=== PATIENT | female | born 1955 | race Caucasian/White ===

== ENCOUNTER → 2018-06-13 12:17 | Outpatient (CLI) | payer OTHER, SELFPAY ==
[2018-06-13 13:11] LABS: Hematocrit 36.1 % (36-46); Mean Corpuscular HGB Conc 33.3 % (30-36); Mean Corpuscular Hemoglobin 31.3 PG (26-34); Platelet Count 281 X10^3/uL (150-400); Red Blood Cell Count 3.84 X10^6/uL (4.0-5.2); Red Cell Distribution Width 13.2 % (11.6-14.8); White Blood Cell Count 11.5 X10^3/uL (4.5-11.0)
[2018-06-13 13:12] LABS: Add Manual Diff / Slide Review YES
[2018-06-13 13:18] LABS: Lactate Dehydrogenase 384 U/L (313-618)
[2018-06-13 13:31] LABS: Neutrophils Absolute Manual 3680 /uL (3000-5900); Total Cells Counted 100
[2018-06-13 13:32] LABS: Smudge Cells 1+
[2018-06-13 13:33] LABS: RBC Morphology Normal Morphology
== END ==
PROVIDERS: Family Provider Family Medicine; PCP Family Medicine; Visit Provider Nurse Practitioner Gerontology
DX: C91.10 Chronic lymphocytic leukemia of B-cell type not having achieved remission (principal)
CPT/HCPCS: 36415; 83615; 85025

== ENCOUNTER → 2018-06-19 08:54 | Oncology outpatient (ONC) | payer OTHER, SELFPAY ==
[2018-06-19 10:57] VITALS: BP 122/74; PULSE 67; RESP 15; TEMP 36.7; O2SAT 100
--- NOTE | 2018-06-19 11:18 | ONC.APRN.PN ---
Assessment and Plan (1) Chronic lymphocytic leukemia Current visit: Yes Status: Acute 06/19/18 11:20 The patient is a 62 year old Female who is being seen in the clinic 06/19/2018 for chronic lymphocytic leukemia. On exam today she has no clinical signs or symptoms to suggest progression of CLL. Specifically no night sweats, weight loss, early satiety, fatigue. No recent illnesses or infections. CBC, CMP unremarkable. White count mildly elevated at 11.5. Hemoglobin 12.0 hematocrit 36.1 platelets [id number]. Normal morphology. LDH 384. I will ask the patient to return in 6 months time for provider visit CBC, CMP, LDH. PN -Subjective Interval history: The patient is a 62 year old Female who is being seen in the clinic 06/19/2018 for chronic lymphocytic leukemia. Patient was initially sent by her primary care provider Dr. Marvin due to elevated white count of 10,900. Differential demonstrated 27 segs, 2 bands, 33 lymphs, 33% atypical lymphocytes. Hemoglobin was normal at 12.5. MCV 93. Platelets [id number]. In review of CBC 2014 showed elevated white count of 10,200 again with alteration in neutrophils/lymphocyte ratio. Patient does not report any overt symptoms of CLL. She does complain of some intermittent fatigue. She has chronic migraines. She denies night sweats, fever. She states she does continue to have postmenopausal hot flashes however these remain unchanged. No nausea, abdominal pain, discomfort. No early satiety. She does not have a history of infections or acute illness. No shortness of breath. In discussion with the pt She seems to have a very good understanding of this diagnosis. Past Medical History The patient's past medical history is significant for: Mitral valve prolapse Postmenopausal hot flashes Anemia Fibromyalgia Chronic migraine headaches Anxiety Allergies Current Medications - Patient Self-Reported Symptoms SR Neuro issues: Headache SR Endocrine issues: Hot flashes Results - Imaging Additional studies: Procedures Colonoscopy (03/27/13) Ligation of hemorrhoids (03/27/13) Home Medications and Allergies Home Medications Medication Instructions Recorded Confirmed Type desonide [DesOwen] 1 betsy TOPICAL BIDP PRN #15 gm 04/11/17 05/04/18 Rx estradiol 0.5 mg PO QDAY #90 tab 04/11/17 05/04/18 Rx naratriptan 1 tab OR SEE INSTRUCTIONS PRN #12 11/29/17 05/04/18 Rx tab medroxyprogesterone 2.5 mg tablet 1.25 mg PO DAILY #45 tab 04/25/18 05/04/18 Rx zonisamide 100 mg capsule 100 mg PO DAILY #30 cap 05/04/18 Rx zonisamide 25 mg capsule 25 mg PO DAILY #24 cap 05/04/18 Rx Allergies Allergy/AdvReac Type Severity Reaction Status Date / Time TETNUS Allergy Unknown Uncoded 05/04/18 10:24 Exam Vital signs: Last Vital Signs Temp 98.0 F 06/19/18 10:57 Pulse 67 06/19/18 10:57 Resp 15 06/19/18 10:57 BP 122/74 H 06/19/18 10:57 Pulse Ox 100 06/19/18 10:57 - Constitutional positive no acute distress, positive average body habitus - Routine HEENT Exam Eye: Present: conjunctivae pink. Absent: conjunctival icterus, scleral injection ENT: Present: mucous membranes moist, oropharynx clear - Routine Neck Exam Present: supple. Absent: lymphadenopathy - Routine Respiratory Exam Present: Clear to auscultation bilaterally. Absent: rales, rhonchi, wheezes - Routine Cardiovascular Exam Present: RRR, S1, S2. Absent: murmur, gallop, rubs, JVD - Routine Abdominal Exam Present: soft, normoactive bowel sounds. Absent: tenderness, distended, organomegaly, mass - Routine Extremities Exam Absent: edema, calf tenderness - Routine Skin Exam Present: intact, normal turgor. Absent: petechiae, rash - Routine Neurological Exam Present: alert, oriented X3 - Routine Psychiatric Exam Present: normal affect
== END ==
PROVIDERS: Family Provider Family Medicine; PCP Family Medicine; Visit Provider Nurse Practitioner Gerontology
DX: C91.10 Chronic lymphocytic leukemia of B-cell type not having achieved remission (principal)
CPT/HCPCS: 99214

== ENCOUNTER → 2019-03-15 08:29 | Outpatient (CLI) | payer OTHER, SELFPAY ==
[2019-03-15 09:02] LABS: Hematocrit 36.5 % (36-46); Hemoglobin 12.3 g/dL (12.0-16.0); Mean Corpuscular HGB Conc 33.6 % (30-36); Mean Corpuscular Hemoglobin 31.4 PG (26-34); Mean Corpuscular Volume 93.5 fL (80-100); Platelet Count 309 X10^3/uL (150-400); Red Blood Cell Count 3.91 X10^6/uL (4.0-5.2); Red Cell Distribution Width 13.4 % (11.6-14.8); White Blood Cell Count 12.7 X10^3/uL (4.5-11.0)
[2019-03-15 09:15] LABS: Alanine Aminotransferase 14 IU/L (9-52); Albumin 4.4 g/dL (3.5-5.0); Albumin Globulin Ratio 1.5 (1.0-2.8); Alkaline Phosphatase 68 U/L (38-126); Aspartate Aminotransferase 18 IU/L (14-36); BUN Creatinine Ratio 18.8 (6-22); Bilirubin Total 0.5 mg/dL (0.2-1.3); Blood Urea Nitrogen 15 mg/dL (7-17); Calcium 9.5 mg/dL (8.4-10.2); Carbon Dioxide 28 mmol/L (22-32); Chloride 104 mmol/L (98-107); Cholesterol 237 mg/dL (140-199); Estimated Glomerular Filt Rate > 60.0 mL/min (>60); Glucose 91 mg/dL (80-110); HDL Cholesterol 87 mg/dL (40-60); HEMOLYSIS < 15 (0-50); LDL Cholesterol Calculated 134 mg/dL (<100); Sodium 141 mmol/L (137-145); Total Protein 7.4 g/dL (6.3-8.2); Triglycerides 78 mg/dL (35-150)
[2019-03-15 09:30] LABS: Neutrophils Absolute Manual 3429 /uL (3000-5900); Total Cells Counted 100
[2019-03-15 09:32] LABS: RBC Morphology Normal Morphology; Smudge Cells 1+
[2019-03-15 10:10] LABS: TSH w/ Reflex to FT4 3.27 uIU/mL (0.47-4.68)
[2019-03-15 10:21] LABS: Folate 7.4 ng/mL (2.76-20.0); Vitamin B12 303 pg/mL (239-931)
== END ==
PROVIDERS: PCP Nurse Practitioner Family; Visit Provider Nurse Practitioner Family
DX: C91.90 Lymphoid leukemia, unspecified not having achieved remission (principal); R53.83 Other fatigue; Z13.6 Encounter for screening for cardiovascular disorders
CPT/HCPCS: 36415; 80053; 80061; 82607; 82746; 84443; 85025

== ENCOUNTER → 2019-07-18 08:43 | Outpatient (CLI) | payer OTHER, SELFPAY ==
[2019-07-18 09:26] LABS: Add Manual Diff / Slide Review YES; Hematocrit 35.9 % (36-46); Hemoglobin 12.3 g/dL (12.0-16.0); Mean Corpuscular HGB Conc 34.2 % (30-36); Mean Corpuscular Hemoglobin 31.1 PG (26-34); Mean Corpuscular Volume 90.8 fL (80-100); Platelet Count 299 X10^3/uL (150-400); Red Blood Cell Count 3.96 X10^6/uL (4.0-5.2); Red Cell Distribution Width 13.5 % (11.6-14.8); White Blood Cell Count 12.1 X10^3/uL (4.5-11.0)
[2019-07-18 09:59] LABS: Neutrophils Absolute Manual 4235 /uL (3000-5900); RBC Morphology Normal Morphology; Total Cells Counted 100
[2019-07-18 10:02] LABS: Cholesterol 204 mg/dL (140-199); HDL Cholesterol 89 mg/dL (40-60); LDL Cholesterol Calculated 104 mg/dL (<100); Triglycerides 53 mg/dL (35-150)
[2019-07-18 10:39] LABS: TSH w/ Reflex to FT4 2.53 uIU/mL (0.47-4.68)
== END ==
PROVIDERS: PCP Nurse Practitioner Family; Visit Provider Nurse Practitioner Family
DX: E78.2 Mixed hyperlipidemia (principal); R79.89 Other specified abnormal findings of blood chemistry; E04.1 Nontoxic single thyroid nodule
CPT/HCPCS: 36415; 80061; 84443; 85025

== ENCOUNTER → 2019-07-23 15:03 | Outpatient (CLI) | payer OTHER, SELFPAY ==
--- NOTE | 2019-07-23 15:05 | DI.US.S_ITS ---
PROCEDURE: US THYROID INDICATIONS: 9mm incidental nodule on CT TECHNIQUE: Real-time scanning was performed of the thyroid gland, with image documentation. COMPARISON: Outside Facility, RG, CT HEAD / NECK ANGIO, 05/26/2019, 21:53. FINDINGS: Right: Thyroid lobe measures 4.5 x 1.4 x 1.3 cm, and is heterogeneous in echotexture. Left: Thyroid lobe measures 3.3 x 0.7 x 0.9 cm, and is homogenous in echotexture. Isthmus: 1.3 mm thick. Nodule number: 1 Location: Right mid Size: 1.7 x 0.9 x 1.3 cm. Composition: Predominantly solid Echogenicity: Hypoechoic Shape: wider than tall. Margins: Smooth Echogenic foci: Internal punctate echogenic foci Total points: 7 ACR TI-RADS category: Highly suspicious IMPRESSION: Highly suspicious left thyroid nodule. Recommend fine needle aspiration. ACR TI-RADS definitions and recommendations: TI-RADS 1 (benign): 0 points. FNA not needed. TI-RADS 2 (not suspicious): 2 points. FNA not needed. TI-RADS 3 (mildly suspicious): 3 points. * FNA if 2.5 cm or larger, follow up if 1.5 cm or larger (at 1, 3, and 5 years). TI-RADS 4 (moderately suspicious): 4-6 points. * FNA if 1.5 cm or larger, follow up if 1 cm or larger (at 1, 2, 3, and 5 years). TI-RADS 5 (highly suspicious): 7 points or more. * FNA if 1 cm or larger, follow up if 0.5 cm or larger (every year for 5 years). Dictated by: Toney ARORAA Interpreted: Alis Graves MD on 07/23/2019 at 16:12 Approved by: Alis Graves MD, PhD on 07/23/2019 at 17:42
== END ==
PROVIDERS: PCP Nurse Practitioner Family; Visit Provider Nurse Practitioner Family
DX: E04.1 Nontoxic single thyroid nodule (principal)
CPT/HCPCS: 76536

== ENCOUNTER → 2019-08-06 14:04 | Outpatient (CLI) | payer OTHER, SELFPAY ==
--- NOTE | 2019-08-06 | PATH_ITS ---
Note [facility] Accession Number: [id number] TESTS RESULT FLAG UNITS REF RANGE LAB Clinician Provided Cytology Information No. of containers..01 ThinPrep Vial No. of containers..12 Previously Prepared Cytology Slide 01 RIGHT THYROID NODULE DIAGNOSIS: 02 RIGHT THYROID NODULE NEGATIVE FOR MALIGNANT CELLS. [place] CATEGORY II - BENIGN. SPECIMEN CONSISTS OF BENIGN FOLLICULAR CELLS, HEMOSIDERIN-LADEN MACROPHAGES, COLLOID, AND BLOOD. THIS PATTERN IS CONSISTENT WITH A COLLOID NODULE. Pathologist ICD10: 02 E04.1 01 INCIDENTAL FINDING OF THYROID NODULE. 02 Kenney Quiros MD, PhD, Pathologist NPI- [id number] Que Dockery, C [employer] Developer ([facility]) 01 30 CC, PALE YELLOW, CLEAR RECEIVED: 6 ALCOHOL FIXED AND 6 QUICK STAINED SLIDES WITH 1 RNA VIAL FOR FURTHER TESTING. /FORMERLY [facility] 08/07/[address] [place] [address] FLAG LEGEND: L-Low Normal,H-High Normal,LL-Alert Low,HH-Alert High <-Panic Low,>-Panic High,A-Abnormal,AA-Critical Abnormal Performed at: 01 =[facility] [address], [place] [address] Braden Alford MD, 02 [facility] [address] [place] [id number] Gricel Mejias MD, Performed at: 01 [facility] [place] [facility] [address], [place], [place] [id number] MD Braden Alford MD Phone: [phone]
--- NOTE | 2019-08-06 14:12 | DI.US.S_ITS ---
PROCEDURE: US FINE NEEDLE ASPIRATION INDICATIONS: RIGHT THYROID NODULE TECHNIQUE: The indications, alternatives, benefits, risks, and complications of the procedure were explained to the patient. Written informed consent was obtained and placed in the chart. The thyroid region was examined sonographically and a site was chosen for ultrasound guided percutaneous sampling. The skin was prepared and draped in the usual fashion, and anesthetized with 1% lidocaine infiltrated from the skin down to the thyroid gland. Multiple passes were then performed, with contents emptied into an appropriate pathology specimen container. A bandage was applied to the area of access at completion of the study. COMPARISON: None. FINDINGS: Location(s) of lesion(s) sampled: Right lobe [place]: 25 and 22 gauge hypodermic needles. Number of passes: 7 Medications: 1% lidocaine for local anaesthesia. Complications: None. IMPRESSION: Successful ultrasound-guided thyroid nodule fine needle aspiration, with cytology results pending. Please see chart below for management recommendations based on cytology results. [facility] ReportingRecommendationsNon-diagnostic* Repeat US-guided FNA, with on-site cytology evaluation if possible. * Repeated non-diagnostic nodules without high suspicion US features: close observation vs surgical consult. * Consider surgery if nodule has high suspicion US features, grows >20% in 2 dimensions on followup, or patient has clinical risk factors for malignancy. Benign* If nodule has high suspicion US features: repeat US and FNA within 12 months. * If nodule has low to intermediate suspicion US features: repeat US at 12-24 months. If nodule grows (20% increase in at least 2 dimensions, with minimal increase of 2 mm or >50% change in volume), or development of new suspicious US features, then repeat FNA or continue followup. * If nodule has very low suspicion US features: followup US at >24 months. Atypia of undetermined significance, follicular lesion of undetermined significanceRepeat FNA, molecular testing, followup US, or surgical consult.Follicular neoplasm, suspicious for follicular neoplasmSurgical consult; also consider molecular testing. Suspicious for malignancySurgical consult.MalignantSurgical consult. Dictated by: Anibal Gonzalez M.D. on 08/06/2019 at 16:09 Approved by: Anibal Gonzalez M.D. on 08/06/2019 at 16:09
== END ==
PROVIDERS: PCP Nurse Practitioner Family; Visit Provider Nurse Practitioner Family
DX: E04.1 Nontoxic single thyroid nodule (principal)
CPT/HCPCS: 10005

== ENCOUNTER → 2019-10-12 11:02 | Outpatient (CLI) | payer OTHER, MEDICAID, SELFPAY ==
[2019-10-12 12:20] LABS: Add Manual Diff / Slide Review NO; Basophils Absolute Auto 100 /uL (0-100); Basophils Percent Auto 0.5 % (0-2); Eosinophils Absolute Auto 100 /uL (0-450); Eosinophils Percent Auto 0.5 % (2-4); Hemoglobin 12.4 g/dL (12.0-16.0); Lymphocytes Absolute Auto 8700 /uL (1100-4500); Lymphocytes Percent Auto 62.7 % (25-40); Mean Corpuscular HGB Conc 33.6 % (30-36); Mean Corpuscular Hemoglobin 30.9 PG (26-34); Mean Corpuscular Volume 92.1 fL (80-100); Monocytes Absolute Auto 500 /uL (0-900); Monocytes Percent Auto 3.5 % (3-14); Neutrophils Absolute Auto 4500 /uL (1500-7000); Neutrophils Percent Auto 32.8 % (50-75); Platelet Count 322 X10^3/uL (150-400); Red Blood Cell Count 4.02 X10^6/uL (4.0-5.2); Red Cell Distribution Width 13.9 % (11.6-14.8); White Blood Cell Count 13.8 X10^3/uL (4.5-11.0)
== END ==
PROVIDERS: PCP Nurse Practitioner Family; Visit Provider Nurse Practitioner Family
DX: C91.90 Lymphoid leukemia, unspecified not having achieved remission (principal)
CPT/HCPCS: 36415; 85025

== ENCOUNTER → 2019-10-25 09:52 | Outpatient (CLI) | payer OTHER, MEDICAID, SELFPAY ==
[2019-10-25 10:53] LABS: Hematocrit 36.4 % (36-46); Hemoglobin 12.3 g/dL (12.0-16.0); Mean Corpuscular HGB Conc 33.9 % (30-36); Mean Corpuscular Hemoglobin 31.3 PG (26-34); Mean Corpuscular Volume 92.2 fL (80-100); Platelet Count 324 X10^3/uL (150-400); Red Blood Cell Count 3.95 X10^6/uL (4.0-5.2); Red Cell Distribution Width 13.8 % (11.6-14.8); White Blood Cell Count 13.7 X10^3/uL (4.5-11.0)
[2019-10-25 10:55] LABS: Add Manual Diff / Slide Review YES
[2019-10-25 11:11] LABS: Neutrophils Absolute Manual 5343 /uL (3000-5900); RBC Morphology Normal Morphology; Total Cells Counted 100
== END ==
PROVIDERS: PCP Nurse Practitioner Family; Visit Provider Nurse Practitioner Family
DX: C91.90 Lymphoid leukemia, unspecified not having achieved remission (principal); D72.829 Elevated white blood cell count, unspecified
CPT/HCPCS: 36415; 85025